=== PATIENT | female | born 1995 | race Two or more races ===

== ENCOUNTER 2017-02-05 13:44 | Inpatient (IN) | payer OTHER ==
[~2017-02-05] VITALS: Ht 167.6 cm; Wt 75.0 kg
[2017-02-05] VITALS (18 sets, daily range): BP systolic 103–125; BP diastolic 53–77
[~2017-02-05 13:44] MED LIST: MOTRIN600 MG PO
[2017-02-05 17:10] LABS: EOSINOPHIL (%) 0.2 % (0-5); HEMATOCRIT 30.3 % (36.0-46.0); IMMATURE GRANULOCYTE (%) 0.8 % (0.0-0.7); IMMATURE GRANULOCYTE COUNT 0.1 K/uL; INSTRUMENT ABS NEUTROPHIL CT 8.5 K/uL; LYMPHOCYTE COUNT 1.4 K/uL (1.0-2.8); MCH 26.9 PG (29.0-34.0); MCV 84.2 FL (83-99); MEAN PLAT.VOLUME 13.1 uM^3 (9.5-12.4); MONOCYTE (%) 7.5 % (3-12); MONOCYTE COUNT 0.8 K/uL (0-0.8); NEUTROPHIL (%) 78.1 % (45-76); NEUTROPHIL COUNT 8.5 K/uL (1.8-6.4); PLATELET COUNT 152 K/uL (156-360); RBC DIS.WIDTH-CV 14.2 % (11.8-14.6); RBC DIS.WIDTH-SD 43.8 % (39-53); WHITE BLOOD COUNT 10.8 K/uL (4.1-10.2)
[2017-02-06] VITALS (10 sets, daily range): BP systolic 94–125; BP diastolic 49–67
[2017-02-07 07:59] LABS: EOSINOPHIL (%) 0.5 % (0-5); EOSINOPHIL COUNT 0.1 K/uL (0-0.3); HEMATOCRIT 22.3 % (36.0-46.0); IMMATURE GRANULOCYTE (%) 0.9 % (0.0-0.7); IMMATURE GRANULOCYTE COUNT 0.1 K/uL; INSTRUMENT ABS NEUTROPHIL CT 11.9 K/uL; LYMPHOCYTE COUNT 2.3 K/uL (1.0-2.8); MCH 27.5 PG (29.0-34.0); MCHC 32.7 G/DL (30.0-36.0); MCV 84.2 FL (83-99); MEAN PLAT.VOLUME 13.3 uM^3 (9.5-12.4); MONOCYTE (%) 9.8 % (3-12); MONOCYTE COUNT 1.6 K/uL (0-0.8); NEUTROPHIL (%) 74.4 % (45-76); NEUTROPHIL COUNT 11.9 K/uL (1.8-6.4); PLATELET COUNT 134 K/uL (156-360); RBC DIS.WIDTH-CV 14.6 % (11.8-14.6); RBC DIS.WIDTH-SD 44.2 % (39-53)
[2017-02-07 08:04] LABS: RED BLOOD COUNT 2.65 M/uL (3.80-5.20)
[2017-02-07 08:21] VITALS: BP 109/70
[2017-02-07 15:13] VITALS: BP 102/65
[2017-02-07 22:42] VITALS: BP 116/77
[2017-02-08 07:40] VITALS: BP 102/55
[2017-02-08] MEDS ORDERED: IBUPROFEN800 MG PO (11:21)
[2017-02-08] MEDS ORDERED: DOCUSATE SODIU100 MG PO (11:21)
[2017-02-08] MEDS ORDERED: DOCUSIL100 MG PO (11:22)
[2017-02-08] MEDS ORDERED: CAMILA0.35 MG PO (11:22)
[2017-02-08] MEDS ORDERED: HEMOCYTE324 MG PO (11:22)
== END 2017-02-08 13:00 | disposition home or self-care (01) | DRG 775 ==
LOC: LDRP-OP → 2WEST 13:46 → LDRP-OP 03-11 14:52
PROVIDERS: Advanced Practice Midwife
DX: O99.824 Streptococcus B carrier state complicating childbirth (principal); O99.03 Anemia complicating the puerperium; D62 Acute posthemorrhagic anemia; O99.12 Other diseases of the blood and blood-forming organs and certain disorders involving the immune mechanism complicating childbirth; D69.6 Thrombocytopenia, unspecified; Z3A.39 39 weeks gestation of pregnancy; Z37.0 Single live birth; Z87.440 Personal history of urinary (tract) infections; Z81.8 Family history of other mental and behavioral disorders; Z82.49 Family history of ischemic heart disease and other diseases of the circulatory system
CPT/HCPCS: 85025; C1755; G0378; J2540; J3010; J7120